=== PATIENT | male | born 1970 | race Two or more races ===

== ENCOUNTER 2019-06-07 19:36 | Emergency (ER) | payer SELFPAY ==
[~2019-06-07] VITALS: Ht 172.7 cm; Wt 100.0 kg
[2019-06-07 22:35] VITALS: BP 147/92
== END 2019-06-07 22:36 | disposition home or self-care (01) ==
LOC: ER 19:36
DX: E11.9 Type 2 diabetes mellitus without complications (principal); I10 Essential (primary) hypertension
CPT/HCPCS: 99283